=== PATIENT | male | born 1950 | race Caucasian/White ===

== ENCOUNTER → 2019-01-31 | Outpatient (CLI) | payer SELFPAY ==
--- NOTE | 2019-01-31 07:58 | ECHOCS_ITS ---
Reason For Study: CAD Procedure This was a 2D Doppler, Color Flow transthoracic echocardiogram. The study was technically difficult. Contrast injection was performed. Exam performed in department. Left Ventricle Normal LV size. Left ventricular systolic function is normal. The estimated ejection fraction is 55 %. Stage 1 diastolic dysfunction. No regional wall motion abnormalities noted. Right Ventricle Normal RV size. Normal systolic function. Atria Normal left atrium. Normal right atrium. Mitral Valve Normal mitral valve. Tricuspid Valve Normal tricuspid valve. Aortic Valve The aortic valve is not well visualized. Pulmonic Valve Normal pulmonic valve. Great Vessels Normal aortic root. The pulmonary artery is normal size. Normal inferior vena cava. Pericardium/Pleural No pericardial effusion. Medication 22 gauge I.V. with prn adaptor inserted into right arm. Diluted definity 4ml given slow IV push to enhance endocardial definition. MMode/2D Measurements & Calculations LVIDd: 5.4 cm IVSd: 1.1 cm Ao root diam: 4.1 cm LVIDs: 3.8 cm LVPWd: 0.95 cm RVDd: 4.4 cm FS: 28.5 % LAV(MOD-bp): 64.2 ml LA A4 area: 17.8 cm2 LA dimension(2D): 3.7 cm LAV(MOD-bp) Indexed: 29.0 ml/m2 LAV(MOD-sp2): 76.0 ml LAV(MOD-sp4): 47.6 ml RA A4 area: 12.6 cm2 Time Measurements MV dec time: 0.29 sec Doppler Measurements & Calculations MV E max giovanni: 65.7 cm/sec Lat Peak E' Giovanni: 10.8 cm/sec Med Peak E' Giovanni: 6.8 cm/sec MV A max giovanni: 94.8 cm/sec E/E' lat: 6.1 E/E' med: 9.6 MV E/A: 0.69 Ao V2 max: 156.6 cm/sec LV V1 max: 128.5 cm/sec PA V2 max: 110.4 cm/sec Ao max P.8 mmHg LV V1 max P.6 mmHg TR max giovanni: 237.9 cm/sec TR max P.7 mmHg Interpretation Summary Normal LV size. Left ventricular systolic function is normal. The estimated ejection fraction is 55 %. Stage 1 diastolic dysfunction. Contrast injection was performed. Ordering Physician: Car Brewer Referring Physician: Car Brewer Performed By: Mae Castañeda RDCS, RVT
== END | disposition home or self-care (01) ==
LOC: CVS 07:56
PROVIDERS: Referring Provider Internal Medicine Cardiovascular Disease; Visit Provider Internal Medicine Cardiovascular Disease
DX: I25.110 Atherosclerotic heart disease of native coronary artery with unstable angina pectoris (principal); I25.2 Old myocardial infarction; I10 Essential (primary) hypertension; E78.5 Hyperlipidemia, unspecified; Z98.890 Other specified postprocedural states
CPT/HCPCS: 93306; Q9957; A4216; C8929

== ENCOUNTER → 2019-02-07 | Outpatient (CLI) | payer BC, SELFPAY ==
[2019-02-07 10:02] VITALS: BMI 36.8
[2019-02-07 13:59] LABS: AST(SGOT) 19 U/L (15-37); Alanine Aminotransfer ALT/SGPT 26 U/L (16-61); Albumin, Serum 3.5 g/dL (3.2-5.0); Alkaline Phosphatase 110 U/L (45-117); Bilirubin, Direct 0.14 mg/dL (0.00-0.30); Cholesterol 158 mg/dL (200); Globulin 5.1 g/dL (2.2-4.2); High Density Lipoprotein 43 mg/dL; Protein, Total 8.6 g/dL (6.4-8.2); Triglycerides 68 mg/dL; Very Low Density Lipoprotein 14 mg/dL (5-40)
== END | disposition home or self-care (01) ==
PROVIDERS: Referring Provider Internal Medicine Cardiovascular Disease; Visit Provider Internal Medicine Cardiovascular Disease
DX: E78.5 Hyperlipidemia, unspecified (principal); I10 Essential (primary) hypertension; I25.10 Atherosclerotic heart disease of native coronary artery without angina pectoris; I25.2 Old myocardial infarction; Z95.5 Presence of coronary angioplasty implant and graft
CPT/HCPCS: 36415; 80061; 80076

== ENCOUNTER → 2020-02-10 | Outpatient (CLI) | payer BC, SELFPAY ==
[2020-02-10 09:53] VITALS: BMI 37.3
[2020-02-10 11:44] LABS: AST(SGOT) 18 U/L (15-37); Alanine Aminotransfer ALT/SGPT 27 U/L (16-61); Albumin, Serum 3.6 g/dL (3.2-5.0); Alkaline Phosphatase 108 U/L (45-117); Bilirubin, Direct 0.13 mg/dL (0.00-0.30); Cholesterol 170 mg/dL (200); Globulin 5.5 g/dL (2.2-4.2); High Density Lipoprotein 39 mg/dL; Protein, Total 9.1 g/dL (6.4-8.2); Triglycerides 87 mg/dL; Very Low Density Lipoprotein 17 mg/dL (5-40)
== END | disposition home or self-care (01) ==
LOC: LAB 10:13
PROVIDERS: Referring Provider Internal Medicine Cardiovascular Disease; Visit Provider Internal Medicine Cardiovascular Disease
DX: E78.5 Hyperlipidemia, unspecified (principal)
CPT/HCPCS: 36415; 80061; 80076

== ENCOUNTER → 2021-02-01 10:16 | Outpatient (CLI) | payer BC, SELFPAY ==
[2021-02-01 08:33] VITALS: BMI 38.5
[2021-02-01 12:45] LABS: AST(SGOT) 24 U/L (15-37); Alanine Aminotransfer ALT/SGPT 32 U/L (16-61); Albumin, Serum 3.6 g/dL (3.2-5.0); Alkaline Phosphatase 95 U/L (45-117); Bilirubin, Direct 0.28 mg/dL (0.00-0.30); Cholesterol 168 mg/dL (200); Globulin 5.2 g/dL (2.2-4.2); High Density Lipoprotein 39 mg/dL; Protein, Total 8.8 g/dL (6.4-8.2); Triglycerides 56 mg/dL; Very Low Density Lipoprotein 11 mg/dL (5-40)
== END ==
PROVIDERS: Referring Provider Internal Medicine Cardiovascular Disease; Visit Provider Internal Medicine Cardiovascular Disease
DX: E78.00 Pure hypercholesterolemia, unspecified (principal); E78.5 Hyperlipidemia, unspecified
CPT/HCPCS: 36415; 80061; 80076